=== PATIENT | male | born 1955 | race Caucasian/White ===

== ENCOUNTER 2019-05-31 15:26 | Emergency (ER) | payer SELFPAY ==
[2019-05-31] MEDS ORDERED: Diphtheria,Pertussis(Acell),Tetanus Vaccine 0.5 ML Syringe IM ONE (15:37)
[2019-05-31] MEDS ORDERED: Bacitracin Oint 1 GM U/D Packet TOP ONE (15:39)
--- NOTE | 2019-05-31 15:40 | EDM.PDOC ---
ED HPI GENERAL MEDICAL PROBLEM - General Chief Complaint: Bite:Animal, Insect Stated Complaint: DOG BITE Time Seen by Provider: 05/31/19 15:27 - History of Present Illness INITIAL COMMENTS - FREE TEXT/NARRATIVE: HISTORY AND PHYSICAL: History of present illness: Patient 64-year-old male presents status post dog bite this was a provoked attack animal is reported to have immunizations and well known to the patient. Patient denies up-to-date tetanus Review of systems: As per history of present illness and below otherwise all systems reviewed and negative. Past medical history: As per history of present illness and as reviewed below otherwise noncontributory. Surgical history: As per history of present illness and as reviewed below otherwise noncontributory. Social history: No reported history of drug or alcohol abuse. Family history: As per history of present illness and as reviewed below otherwise noncontributory. Physical exam: HEENT: Atraumatic, normocephalic, pupils reactive, negative for conjunctival pallor or scleral icterus, mucous membranes moist, throat clear, neck supple, nontender, trachea midline. Lungs: Clear to auscultation, breath sounds equal bilaterally, chest nontender. Heart: S1S2, regular, negative for clicks, rubs, or JVD. Abdomen: Soft, nondistended, nontender. Negative for masses or hepatosplenomegaly. Negative for costovertebral tenderness. Pelvis: Stable nontender. Genitourinary: Deferred. Rectal: Deferred. Extremities: Abrasion superficial laceration noted the right forearm good hemostasis CMS neurovascular exam is unremarkable there's no tendon involvement. Neuro: Awake, alert, oriented. Cranial nerves II through XII unremarkable. Cerebellum unremarkable. Motor and sensory unremarkable throughout. Exam nonfocal. Diagnostics: None Therapeutics: Tetanus updated wound irrigated copiously with 0.9 normal saline and dressed with bacitracin dressing Impression: #1 dog bite right upper extremity Definitive disposition and diagnosis as appropriate pending reevaluation and review of above. - Related Data Allergies Allergy/AdvReac Type Severity Reaction Status Date / Time No Known Allergies Allergy Verified 05/31/19 15:35 Home Meds: Home Meds . [No Known Home Meds] 03/11/14 [History] Past Medical History - Past Health History Medical/Surgical History: Denies Medical/Surgical History Social & Family History - Family History Family Medical History: Noncontributory - Tobacco Use Smoking Status *Q: Current Every Day Smoker Years of Tobacco use: 49 Packs/Tins Daily: 0.5 - Caffeine Use Caffeine Use: Reports: Coffee - Recreational Drug Use Recreational Drug Use: No ED ROS GENERAL - Review of Systems Review Of Systems: ROS reveals no pertinent complaints other than HPI. ED EXAM, ANIMAL BITE - Physical Exam Exam: See Below (See dictation) Course - Vital Signs Last Recorded V/S: Last Vital Signs Temp 36.8 C 05/31/19 15:31 Pulse 93 05/31/19 15:31 Resp 18 05/31/19 15:31 BP 143/93 H 05/31/19 15:31 Pulse Ox 95 05/31/19 15:31 - Orders/Labs/Meds Orders: Active Orders 24 hr Category Date Time Status Vaccines to be Administered [RC] PER UNIT ROUTINE Care 05/31/19 15:37 Active Meds: Medications Discontinued Medications Generic Name Dose Route Start Last Admin Trade Name Freq PRN Reason Stop Dose Admin Diphtheria/Tetanus/Acell Pertussis 0.5 ml 05/31/19 15:37 Adacel IM 05/31/19 15:38 .ONCE ONE Departure - Departure Time of Disposition: 15:39 Disposition: Home, Self-Care 01 Condition: Good Clinical Impression: Dog bite - Discharge Information Referrals: PCP,Unknown [Primary Care Provider] - Additional Instructions: The following information is given to patients seen in the emergency department who are being discharged to home. This information is to outline your options for follow-up care. We provide all patients seen in our emergency department with a follow-up referral. The need for follow-up, as well as the timing and circumstances, are variable depending upon the specifics of your emergency department visit. If you don't have a primary care physician on staff, we will provide you with a referral. We always advise you to contact your personal physician following an emergency department visit to inform them of the circumstance of the visit and for follow-up with them and/or the need for any referrals to a consulting specialist. The emergency department will also refer you to a specialist when appropriate. This referral assures that you have the opportunity for followup care with a specialist. All of these measure are taken in an effort to provide you with optimal care, which includes your followup. Under all circumstances we always encourage you to contact your private physician who remains a resource for coordinating your care. When calling for followup care, please make the office aware that this follow-up is from your recent emergency room visit. If for any reason you are refused follow-up, please contact the [facility] emergency department at and asked to speak to the emergency department charge nurse. Wound care as discussed follow-up primary medical doctor for reevaluation 48 hours Augmentin as prescribed return as needed as discussed - My Orders Last 24 Hours: My Active Orders 05/31/19 15:37 Vaccines to be Administered [RC] PER UNIT ROUTINE - Assessment/Plan Last 24 Hours: My Active Orders 05/31/19 15:37 Vaccines to be Administered [RC] PER UNIT ROUTINE
== END 2019-05-31 15:56 | disposition home or self-care (01) ==
LOC: MW.ED 15:26
DX: S51.851A Open bite of right forearm, initial encounter (principal); F17.210 Nicotine dependence, cigarettes, uncomplicated; Z23 Encounter for immunization; W54.0XXA Bitten by dog, initial encounter
CPT/HCPCS: 90471; 90715; 99283

== ENCOUNTER 2019-09-08 19:04 | Emergency (ER) | payer SELFPAY ==
[2019-09-08] MEDS ORDERED: Ketorolac 30 MG/ML SDV IM ONE (19:17)
--- NOTE | 2019-09-08 19:22 | EDM.PDOC ---
ED HPI GENERAL MEDICAL PROBLEM - General Chief Complaint: Genitourinary Problem Stated Complaint: SWOLLEN TESTICLE Time Seen by Provider: 09/08/19 19:08 - History of Present Illness INITIAL COMMENTS - FREE TEXT/NARRATIVE: HISTORY AND PHYSICAL: History of present illness: Patient is a 64-year-old white male who presents with a concern of left testicular pain he states he's had a history of testicular pain and swelling in his been seen by physician on multiple prior occasions he does not recall a specific diagnosis is extremely vague with regard to any diagnostic testing or treatments. He states he was put on anti-inflammatory once patient states is also had a history of urolithiasis he denies any back pain states this event is approximately 1 week. He denies trauma. Review of systems: As per history of present illness and below otherwise all systems reviewed and negative. Past medical history: As per history of present illness and as reviewed below otherwise noncontributory. Surgical history: As per history of present illness and as reviewed below otherwise noncontributory. Social history: No reported history of drug or alcohol abuse. Family history: As per history of present illness and as reviewed below otherwise noncontributory. Physical exam: HEENT: Atraumatic, normocephalic, pupils reactive, negative for conjunctival pallor or scleral icterus, mucous membranes moist, throat clear, neck supple, nontender, trachea midline. Lungs: Clear to auscultation, breath sounds equal bilaterally, chest nontender. Heart: S1S2, regular, negative for clicks, rubs, or JVD. Abdomen: Soft, nondistended, nontender. Negative for masses or hepatosplenomegaly. Negative for costovertebral tenderness. Pelvis: Stable nontender. Genitourinary: Grossly normal no masses appreciated no penile lesions no urethral discharge no evidence of hernia Rectal: Deferred. Extremities: Atraumatic, negative for cords or calf pain. Neurovascular unremarkable. Neuro: Awake, alert, oriented. Cranial nerves II through XII unremarkable. Cerebellum unremarkable. Motor and sensory unremarkable throughout. Exam nonfocal. Diagnostics: CBC CMP UA urine for GC chlamydia testicular ultrasound left kidney ultrasound Therapeutics: Toradol 30 mg IM Impression: #1 chronic intermittent left testicular pain etiology to be determined Definitive disposition and diagnosis as appropriate pending reevaluation and review of above. left scrotal Pain Score (Numeric/FACES): 9 - Related Data Allergies Allergy/AdvReac Type Severity Reaction Status Date / Time No Known Allergies Allergy Verified 09/08/19 19:11 Home Meds: Home Meds . [No Known Home Meds] 03/11/14 [History] Past Medical History - Past Health History Medical/Surgical History: Denies Medical/Surgical History HEENT History: Reports: None Cardiovascular History: Reports: None Respiratory History: Reports: None Gastrointestinal History: Reports: None Genitourinary History: Reports: Renal Calculus Musculoskeletal History: Reports: None Neurological History: Reports: None Psychiatric History: Reports: None Endocrine/Metabolic History: Reports: None Insulin Pump Model and Cyber Reverse Engineer: None Hematologic History: Reports: None Immunologic History: Reports: None Oncologic (Cancer) History: Reports: None Dermatologic History: Reports: None - Infectious Disease History Infectious Disease History: Reports: None - Past Surgical History Male Surgical History: Reports: Lithotripsy ([facility]) Musculoskeletal Surgical History: Reports: Shoulder Surgery Social & Family History - Family History Family Medical History: Noncontributory - Tobacco Use Smoking Status *Q: Current Some Day Smoker Years of Tobacco use: 1 Packs/Tins Daily: 1 - Caffeine Use Caffeine Use: Reports: Soda - Recreational Drug Use Recreational Drug Use: No ED ROS GENERAL - Review of Systems Review Of Systems: Comprehensive ROS is negative, except as noted in HPI. ED EXAM, GENERAL - Physical Exam Exam: See Below (See dictation) Course - Vital Signs Last Recorded V/S: Last Vital Signs Temp 36.1 C 09/08/19 21:32 Pulse 60 09/08/19 21:32 Resp 18 09/08/19 21:32 BP 150/92 H 09/08/19 21:32 Pulse Ox 95 09/08/19 21:32 - Orders/Labs/Meds Orders: Active Orders 24 hr Category Date Time Status Scrotal Duplex Ltd [US] Routine Exams 09/08/19 19:15 Taken CHLAMYDIA AND GONORRHEA BY TMA Stat Lab 09/08/19 19:55 Received CULTURE URINE [RM] Stat Lab 09/08/19 19:55 Received Labs: Laboratory Tests 09/08/19 09/08/19 09/08/19 Range/Units 19:27 19:27 19:55 WBC 7.72 (4.0-11.0) K/uL RBC 5.18 (4.50-5.90) M/uL Hgb 14.8 (13.0-17.0) g/dL Hct 42.6 (38.0-50.0) % MCV 82.2 (80.0-98.0) fL MCH 28.6 (27.0-32.0) pg MCHC 34.7 (31.0-37.0) g/dL RDW Std Deviation 38.5 (28.0-62.0) fl RDW Coeff of Carin 13 (11.0-15.0) % Plt Count 225 (150-400) K/uL MPV 9.40 (7.40-12.00) fL Neut % (Auto) 67.5 (48.0-80.0) % Lymph % (Auto) 21.0 (16.0-40.0) % Clay % (Auto) 8.0 (0.0-15.0) % Eos % (Auto) 3.2 (0.0-7.0) % Baso % (Auto) 0.3 (0.0-1.5) % Neut # (Auto) 5.2 (1.4-5.7) K/uL Lymph # (Auto) 1.6 (0.6-2.4) K/uL Clay # (Auto) 0.6 (0.0-0.8) K/uL Eos # (Auto) 0.3 (0.0-0.7) K/uL Baso # (Auto) 0.0 (0.0-0.1) K/uL Sodium 140 (136-148) mmol/L Potassium 3.9 (3.5-5.1) mmol/L Chloride 104 (98-107) mmol/L Carbon Dioxide 25.8 (21.0-32.0) mmol/L BUN 13 (7.0-18.0) mg/dL Creatinine 1.1 (0.8-1.3) mg/dL Est Cr Clr Drug Dosing 74.16 mL/min Estimated GFR (MDRD) > 60.0 ml/min Glucose 111 H (74-106) mg/dL Calcium 8.5 (8.5-10.1) mg/dL Total Bilirubin 0.4 (0.2-1.0) mg/dL AST 36 (15-37) IU/L ALT 64 H (14-63) IU/L Alkaline Phosphatase 111 (46-116) U/L Total Protein 7.5 (6.4-8.2) g/dL Albumin 4.1 (3.4-5.0) g/dL Globulin 3.4 (2.6-4.0) g/dL Albumin/Globulin Ratio 1.2 (0.9-1.6) Urine Color YELLOW Urine Appearance CLEAR Urine pH 6.0 (5.0-8.0) Ur Specific [place] 1.025 (1.001-1.035) Urine Protein NEGATIVE (NEGATIVE) mg/dL Urine Glucose (UA) NEGATIVE (NEGATIVE) mg/dL Urine Ketones TRACE H (NEGATIVE) mg/dL Urine Occult Blood NEGATIVE (NEGATIVE) Urine Nitrite NEGATIVE (NEGATIVE) Urine Bilirubin NEGATIVE (NEGATIVE) Urine Urobilinogen 0.2 (<2.0) EU/dL Ur Leukocyte Esterase TRACE H (NEGATIVE) Urine RBC 0-1 (0-2/HPF) Urine WBC 1-2 (0-5/HPF) Ur Epithelial Cells RARE (NONE-FEW) Urine Bacteria RARE (NEGATIVE) Urine Opiates Screen (NEGATIVE) Ur Oxycodone Screen (NEGATIVE) Urine Methadone Screen (NEGATIVE) Ur Barbiturates Screen (NEGATIVE) Ur Phencyclidine Scrn (NEGATIVE) Ur Amphetamine Screen (NEGATIVE) U Methamphetamines Scrn (NEGATIVE) U Benzodiazepines Scrn (NEGATIVE) U Cocaine Metab Screen (NEGATIVE) U Marijuana (THC) Screen (NEGATIVE) 09/08/19 Range/Units 19:55 WBC (4.0-11.0) K/uL RBC (4.50-5.90) M/uL Hgb (13.0-17.0) g/dL Hct (38.0-50.0) % MCV (80.0-98.0) fL MCH (27.0-32.0) pg MCHC (31.0-37.0) g/dL RDW Std Deviation (28.0-62.0) fl RDW Coeff of Carin (11.0-15.0) % Plt Count (150-400) K/uL MPV (7.40-12.00) fL Neut % (Auto) (48.0-80.0) % Lymph % (Auto) (16.0-40.0) % Clay % (Auto) (0.0-15.0) % Eos % (Auto) (0.0-7.0) % Baso % (Auto) (0.0-1.5) % Neut # (Auto) (1.4-5.7) K/uL Lymph # (Auto) (0.6-2.4) K/uL Clay # (Auto) (0.0-0.8) K/uL Eos # (Auto) (0.0-0.7) K/uL Baso # (Auto) (0.0-0.1) K/uL Sodium (136-148) mmol/L Potassium (3.5-5.1) mmol/L Chloride (98-107) mmol/L Carbon Dioxide (21.0-32.0) mmol/L BUN (7.0-18.0) mg/dL Creatinine (0.8-1.3) mg/dL Est Cr Clr Drug Dosing mL/min Estimated GFR (MDRD) ml/min Glucose (74-106) mg/dL Calcium (8.5-10.1) mg/dL Total Bilirubin (0.2-1.0) mg/dL AST (15-37) IU/L ALT (14-63) IU/L Alkaline Phosphatase (46-116) U/L Total Protein (6.4-8.2) g/dL Albumin (3.4-5.0) g/dL Globulin (2.6-4.0) g/dL Albumin/Globulin Ratio (0.9-1.6) Urine Color Urine Appearance Urine pH (5.0-8.0) Ur Specific [place] (1.001-1.035) Urine Protein (NEGATIVE) mg/dL Urine Glucose (UA) (NEGATIVE) mg/dL Urine Ketones (NEGATIVE) mg/dL Urine Occult Blood (NEGATIVE) Urine Nitrite (NEGATIVE) Urine Bilirubin (NEGATIVE) Urine Urobilinogen (<2.0) EU/dL Ur Leukocyte Esterase (NEGATIVE) Urine RBC (0-2/HPF) Urine WBC (0-5/HPF) Ur Epithelial Cells (NONE-FEW) Urine Bacteria (NEGATIVE) Urine Opiates Screen NEGATIVE (NEGATIVE) Ur Oxycodone Screen NEGATIVE (NEGATIVE) Urine Methadone Screen NEGATIVE (NEGATIVE) Ur Barbiturates Screen NEGATIVE (NEGATIVE) Ur Phencyclidine Scrn NEGATIVE (NEGATIVE) Ur Amphetamine Screen NEGATIVE (NEGATIVE) U Methamphetamines Scrn NEGATIVE (NEGATIVE) U Benzodiazepines Scrn NEGATIVE (NEGATIVE) U Cocaine Metab Screen NEGATIVE (NEGATIVE) U Marijuana (THC) Screen POSITIVE (NEGATIVE) Meds: Medications Discontinued Medications Generic Name Dose Route Start Last Admin Trade Name Demetria PRN Reason Stop Dose Admin Ketorolac Tromethamine 30 mg 09/08/19 19:17 09/08/19 19:29 Toradol IM 09/08/19 19:18 30 mg ONETIME ONE Administration Departure - Departure Time of Disposition: 21:40 Disposition: Home, Self-Care 01 Condition: Good Clinical Impression: Chronic pain in testicle - Discharge Information Referrals: PCP,None [Ordering Only Provider] - Forms: ED Department Discharge Additional Instructions: The following information is given to patients seen in the emergency department who are being discharged to home. This information is to outline your options for follow-up care. We provide all patients seen in our emergency department with a follow-up referral. The need for follow-up, as well as the timing and circumstances, are variable depending upon the specifics of your emergency department visit. If you don't have a primary care physician on staff, we will provide you with a referral. We always advise you to contact your personal physician following an emergency department visit to inform them of the circumstance of the visit and for follow-up with them and/or the need for any referrals to a consulting specialist. The emergency department will also refer you to a specialist when appropriate. This referral assures that you have the opportunity for followup care with a specialist. All of these measure are taken in an effort to provide you with optimal care, which includes your followup. Under all circumstances we always encourage you to contact your private physician who remains a resource for coordinating your care. When calling for followup care, please make the office aware that this follow-up is from your recent emergency room visit. If for any reason you are refused follow-up, please contact the [facility] emergency department at and asked to speak to the emergency department charge nurse. DEEJAY [facility] - Urology [address] [place] [id number] Follow-up urology as discussed Motrin/Tylenol as directed return as needed as discussed - My Orders Last 24 Hours: My Active Orders 09/08/19 19:15 Scrotal Duplex Ltd [US] Routine 09/08/19 19:55 CHLAMYDIA AND GONORRHEA BY TMA Stat CULTURE URINE [RM] Stat - Assessment/Plan Last 24 Hours: My Active Orders 09/08/19 19:15 Scrotal Duplex Ltd [US] Routine 09/08/19 19:55 CHLAMYDIA AND GONORRHEA BY TMA Stat CULTURE URINE [RM] Stat
[2019-09-08 20:07] LABS: BLOOD UREA NITROGEN,BUN 13 mg/dL (7.0-18.0); CARBON DIOXIDE,CO2 25.8 mmol/L (21.0-32.0); CHLORIDE,CL 104 mmol/L (98-107); GLUCOSE RANDOM 111 mg/dL (74-106); POTASSIUM,K 3.9 mmol/L (3.5-5.1); SODIUM,NA 140 mmol/L (136-148)
--- NOTE | 2019-09-08 21:35 | US ---
INDICATION: Left flank pain TECHNIQUE: Ultrasound renal bilateral. Richardson scale and color Doppler sonographic images were acquired of the kidneys and urinary bladder. COMPARISON: None FINDINGS: Right kidney: 11.3 cm. Normal echotexture and cortex. No masses, stones, or hydronephrosis. Left kidney: 11.3 cm. Normal echotexture and cortex. No masses, stones, or hydronephrosis. Bladder: Normal in caliber and appearance. Color Doppler images demonstrate only a left ureteral jet. IMPRESSION: Normal renal ultrasound. Dictated by Eliceo Barrow MD @ 09/08/2019 9:32:46 PM Dictated by: Eliceo Barrow MD @ 09/08/2019 21:32:50 (Electronically Signed)
--- NOTE | 2019-09-08 21:36 | US ---
INDICATION: Side testicular pain TECHNIQUE: Ultrasound of the scrotum and contents. Sonographic judd scale images were obtained with spectral and color Doppler waveform and spectral waveform analysis of the testicles. COMPARISON: None FINDINGS: Right testicle: 5.5 centimeter x 2.6 centimeter x 2.8 centimeter. Normal echotexture. No masses. No suspicious calcifications. Normal arterial and venous and blood flow using Doppler and spectral waveform analysis. Left testicle: 5.2 centimeter x 2.3 centimeter x 3.4 centimeter. Normal echotexture. No masses. No suspicious calcifications. Normal arterial and venous and blood flow using Doppler and spectral waveform analysis. Epididymis: Unremarkable bilaterally. Normal blood flow. Other: Small bilateral hydroceles left greater than right. No sign of varicocele. Scrotal wall is normal. IMPRESSION: Normal testicles, right and left epididymis. Small bilateral hydroceles left greater than right. Dictated by Eliceo Barrow MD @ 09/08/2019 9:35:12 PM Dictated by: Eliceo Barrow MD @ 09/08/2019 21:35:18 (Electronically Signed)
--- NOTE | 2019-09-09 11:47 | US ---
EXAM DATE: 09/08/19 PATIENT'S AGE: 64 Patient: KAYLEY JAYJAY Facility: [facility] . Site : 1955 Study: US-Testicle -09/08/2019 8:57:18 PM Ordering Physician: Sterling Domingo Final Report: INDICATION: Side testicular pain TECHNIQUE: Ultrasound of the scrotum and contents. Sonographic judd scale images were obtained with spectral and color Doppler waveform and spectral waveform analysis of the testicles. COMPARISON: None FINDINGS: Right testicle: 5.5 centimeter x 2.6 centimeter x 2.8 centimeter. Normal echotexture. No masses. No suspicious calcifications. Normal arterial and venous and blood flow using Doppler and spectral waveform analysis. Left testicle: 5.2 centimeter x 2.3 centimeter x 3.4 centimeter. Normal echotexture. No masses. No suspicious calcifications. Normal arterial and venous and blood flow using Doppler and spectral waveform analysis. Epididymis: Unremarkable bilaterally. Normal blood flow. Other: Small bilateral hydroceles left greater than right. No sign of varicocele. Scrotal wall is normal. IMPRESSION: Normal testicles, right and left epididymis. Small bilateral hydroceles left greater than right. Dictated by Kayley Barrow MD @ 09/08/2019 9:35:12 PM Dictated by: Kayley Barrow MD @ 09/08/2019 21:35:18 Signed by: Kayley Barrow MD @09/08/2019 9:35:18 PM (Electronic Signature) Report Signed by Proxy. GINETTE
== END 2019-09-08 21:50 | disposition home or self-care (01) ==
LOC: MW.ED 19:04
DX: N50.812 Left testicular pain (principal); G89.29 Other chronic pain; F17.210 Nicotine dependence, cigarettes, uncomplicated
CPT/HCPCS: 36415; 76775; 76870; 80053; 80305; 81001; 85025; 87086; 87491; 87591; 93976; 96372; 99284; J1885

== ENCOUNTER 2019-11-02 10:59 | Emergency (ER) | payer SELFPAY | END 2019-11-02 11:40 | disposition left against medical advice (07) | LOC: MW.ED 10:59 | DX: Z53.21 Procedure and treatment not carried out due to patient leaving prior to being seen by health care provider (principal) ==

== ENCOUNTER 2020-04-11 13:08 | Emergency (ER) | payer OTHER ==
--- NOTE | 2020-04-11 13:40 | EDM.PDOC ---
ED HPI GENERAL MEDICAL PROBLEM - General Chief Complaint: Lower Extremity Injury/Pain Stated Complaint: RIGHT LEG / GREEN INJURY Time Seen by Provider: 04/11/20 13:10 Source of Information: Reports: Patient History Limitations: Reports: No Limitations - History of Present Illness INITIAL COMMENTS - FREE TEXT/NARRATIVE: HISTORY AND PHYSICAL: History of present illness: Patient is a 65-year-old male who presents to the emergency room with complaints of right lower extremity pain and injury. He states on 04/01/2020 he had stepped through a grate that was approximately a foot off of the ground, resulting in his medial right lower extremity grazing the metal adrienne. Immediately he had a large golf ball sized area of redness and soft tissue swelling. Over the next few days he had pain at the site and bruising distally with settling in his plantar surface of his foot. He has been continuing to be ambulatory, bearing weight and able to perform his ADLs. The localized area of soft tissue swelling is smaller but now tender to touch. He also has some diffuse redness extending into the anterior tib-fib area and into the posterior calf. Patient denies any fever, chills, headache, change in vision, syncope or near syncope. Denies any chest pain, back pain, shortness of breath or cough. Denies any GI or symptoms. No history of diabetes. Review of systems: As per history of present illness and below otherwise all systems reviewed and negative. Past medical history: As per history of present illness and as reviewed below otherwise noncontributory. Surgical history: As per history of present illness and as reviewed below otherwise noncontributory. Social history: See social history for further information Family history: As per history of present illness and as reviewed below otherwise noncontributory. Physical exam: General: Well-developed and well-nourished 65-year-old male. Alert and oriented. Nontoxic-appearing and in no acute distress. HEENT: Atraumatic, normocephalic, pupils equal and reactive bilaterally, negative for conjunctival pallor or scleral icterus, mucous membranes moist, TMs normal bilaterally, throat clear, neck supple, nontender, trachea midline. No drooling or trismus noted. No meningeal signs. No hot potato voice noted. Lungs: Clear to auscultation, breath sounds equal bilaterally, chest nontender. Heart: S1S2, regular rate and rhythm without overt murmur Abdomen: Soft, nondistended, nontender. Skin: Quarter size area of soft tissue swelling to the medial mid right calf which is firm to palpation. Nonfluctuant and nonindurated. The skin surrounding the site is erythematous and extends to the anterior and calf area of the right lower extremity. He does have some healing bruising/pooling to the plantar surface of the foot both medially and laterally. Otherwise remaining skin is intact, warm, dry. No lesions or rashes noted. Extremities: See SKIN for details. Mild discomfort with palpation of the distal medial and lateral tib-fib. Moves all extremities per self without difficulty or deficits, negative for cords or calf pain. Negative foot drop. Positive CMS. Strong pedal pulses. Neurovascular unremarkable. Neuro: Awake, alert, oriented. Cranial nerves II through XII unremarkable. Cerebellum unremarkable. Motor and sensory unremarkable throughout. Exam nonfocal. Notes: Initial documented blood pressure was elevated, this was repeated several minutes after and is now in normal limits. We will continue to monitor. Lab work is unremarkable. Ultrasound shows no evidence of a DVT. There is a hematoma that is 5.3 x 1.6 x 2.9. With the diffuse redness, will treat as early cellulitis. We discussed signs and symptoms that would prompt him to return to the emergency room. He declines wanting any type of crutches or supportive boot for comfort purposes. Follow up, medication and supportive care measures were reviewed and discussed. Voices understanding and is agreeable to plan of care. Denies any further questions or concerns at this time. Diagnostics: CBC, CMP, Tib/Fib x-ray, Venous and soft tissue U/S Therapeutics: None Prescription: Tramadol (#15) Keflex Impression: Hematoma Cellulitis Plan: 1. Your x-ray and ultrasound show no fracture or DVT (blood clot), but you do have a large bruise under the skin surface (which is where that large lump is). Rest, ice, elevate the affected extremity. Continue to monitor skin for signs of improvement. If redness/pain gets worse you need to follow up with primary care or return to the ED as we discussed. 2. Tylenol and/or Ibuprofen as needed for pain management. 3. Follow up with the Orthopedic provider as we discussed. Return to the ED as needed and as discussed. Definitive disposition and diagnosis as appropriate pending reevaluation and review of above. right leg Pain Score (Numeric/FACES): 6 - Related Data Allergies Allergy/AdvReac Type Severity Reaction Status Date / Time No Known Allergies Allergy Verified 04/11/20 13:32 Home Meds: Home Meds cephALEXin [Keflex] 500 mg PO BID 5 Days #10 cap 04/11/20 [Rx] traMADol [Ultram] 50 mg PO Q4H PRN #15 tab 04/11/20 [Rx] Past Medical History - Past Health History Medical/Surgical History: Denies Medical/Surgical History HEENT History: Reports: None Cardiovascular History: Reports: Hypertension Respiratory History: Reports: None Gastrointestinal History: Reports: None Genitourinary History: Reports: Renal Calculus Musculoskeletal History: Reports: None Neurological History: Reports: None Psychiatric History: Reports: None Endocrine/Metabolic History: Reports: None Insulin Pump Model and Extrusion Die Repair Manager: None Hematologic History: Reports: None Immunologic History: Reports: None Oncologic (Cancer) History: Reports: None Dermatologic History: Reports: None - Infectious Disease History Infectious Disease History: Reports: Chicken Pox, Measles, Mumps - Past Surgical History Male Surgical History: Reports: Lithotripsy ([facility]) Musculoskeletal Surgical History: Reports: Shoulder Surgery Other Musculoskeletal Surgeries/Procedures:: knee surgery, arm surgery Social & Family History - Family History Family Medical History: Noncontributory - Tobacco Use Smoking Status *Q: Current Every Day Smoker Years of Tobacco use: 50 Packs/Tins Daily: 0.5 - Caffeine Use Caffeine Use: Reports: Soda - Recreational Drug Use Recreational Drug Use: No Review of Systems - Review of Systems Review Of Systems: Comprehensive ROS is negative, except as noted in HPI. ED EXAM, GENERAL - Physical Exam Exam: See Below (See dictation) Course - Vital Signs Last Recorded V/S: Last Vital Signs Temp 95.8 F L 04/11/20 13:28 Pulse 73 04/11/20 16:10 Resp 18 04/11/20 16:10 BP 143/77 H 04/11/20 16:10 Pulse Ox 95 04/11/20 16:10 - Orders/Labs/Meds Labs: Laboratory Tests 04/11/20 04/11/20 Range/Units 13:51 13:51 WBC 7.05 (4.0-11.0) K/uL RBC 4.95 (4.50-5.90) M/uL Hgb 14.2 (13.0-17.0) g/dL Hct 43.0 (38.0-50.0) % MCV 86.9 (80.0-98.0) fL MCH 28.7 (27.0-32.0) pg MCHC 33.0 (31.0-37.0) g/dL RDW Std Deviation 40.5 (28.0-62.0) fl RDW Coeff of Carin 13 (11.0-15.0) % Plt Count 195 (150-400) K/uL MPV 9.90 (7.40-12.00) fL Neut % (Auto) 70.8 (48.0-80.0) % Lymph % (Auto) 14.6 L (16.0-40.0) % Roane % (Auto) 9.8 (0.0-15.0) % Eos % (Auto) 4.4 (0.0-7.0) % Baso % (Auto) 0.4 (0.0-1.5) % Neut # (Auto) 5.0 (1.4-5.7) K/uL Lymph # (Auto) 1.0 (0.6-2.4) K/uL Roane # (Auto) 0.7 (0.0-0.8) K/uL Eos # (Auto) 0.3 (0.0-0.7) K/uL Baso # (Auto) 0.0 (0.0-0.1) K/uL Nucleated RBC % 0.0 /100WBC Nucleated RBCs # 0 K/uL Sodium 140 (136-148) mmol/L Potassium 4.3 (3.5-5.1) mmol/L Chloride 103 (98-107) mmol/L Carbon Dioxide 30.0 (21.0-32.0) mmol/L BUN 15 (7.0-18.0) mg/dL Creatinine 1.1 (0.8-1.3) mg/dL Est Cr Clr Drug Dosing 73.21 mL/min Estimated GFR (MDRD) > 60.0 ml/min Glucose 114 H (74-106) mg/dL Calcium 9.1 (8.5-10.1) mg/dL Total Bilirubin 0.7 (0.2-1.0) mg/dL AST 24 (15-37) IU/L ALT 47 (14-63) IU/L Alkaline Phosphatase 103 (46-116) U/L Total Protein 7.2 (6.4-8.2) g/dL Albumin 4.2 (3.4-5.0) g/dL Globulin 3.0 (2.6-4.0) g/dL Albumin/Globulin Ratio 1.4 (0.9-1.6) Departure - Departure Time of Disposition: 15:40 Disposition: Home, Self-Care 01 Clinical Impression: Hematoma of lower leg Cellulitis Qualifiers: Site of cellulitis: extremity Site of cellulitis of extremity: lower extremity Laterality: right Qualified Code(s): L03.115 - Cellulitis of right lower limb - Discharge Information Prescriptions: cephALEXin [Keflex] 500 mg PO BID 5 Days #10 cap traMADol [Ultram] 50 mg PO Q4H PRN #15 tab PRN Reason: Pain Instructions: Cellulitis, Adult, [id number] Referrals: Carlos Duggan MD [Primary Care Provider] - Forms: ED Department Discharge Additional Instructions: The following information is given to patients seen in the emergency department who are being discharged to home. This information is to outline your options for follow-up care. We provide all patients seen in our emergency department with a follow-up referral. The need for follow-up, as well as the timing and circumstances, are variable depending upon the specifics of your emergency department visit. If you don't have a primary care physician on staff, we will provide you with a referral. We always advise you to contact your personal physician following an emergency department visit to inform them of the circumstance of the visit and for follow-up with them and/or the need for any referrals to a consulting specialist. The emergency department will also refer you to a specialist when appropriate. This referral assures that you have the opportunity for follow-up care with a specialist. All of these measure are taken in an effort to provide you with optimal care, which includes your follow-up. Under all circumstances we always encourage you to contact your private physician who remains a resource for coordinating your care. When calling for follow-up care, please make the office aware that this follow-up is from your recent emergency room visit. If for any reason you are refused follow-up, please contact the [facility] Emergency Department at and asked to speak to the emergency department charge nurse. [facility] [address] [place] [address] [facility] [address] [place] [id number] 1. Your x-ray and ultrasound show no fracture or DVT (blood clot), but you do have a large bruise under the skin surface (which is where that large lump is). Rest, ice, elevate the affected extremity. Continue to monitor skin for signs of improvement. If redness/pain gets worse you need to follow up with primary care or return to the ED as we discussed. 2. Tylenol and/or Ibuprofen as needed for pain management. 3. Follow up with the Orthopedic provider as we discussed. Return to the ED as needed and as discussed. Sepsis Event Note (ED) - Evaluation Sepsis Screening Result: No Definite Risk - Focused Exam Vital Signs: Vital Signs Temp Pulse Resp BP Pulse Ox 04/11/20 16:10 73 18 143/77 H 95 04/11/20 13:28 95.8 F L 88 17 146/112 H 94 L
[2020-04-11 14:28] LABS: BLOOD UREA NITROGEN,BUN 15 mg/dL (7.0-18.0); CHLORIDE,CL 103 mmol/L (98-107); GLUCOSE RANDOM 114 mg/dL (74-106); POTASSIUM,K 4.3 mmol/L (3.5-5.1); SODIUM,NA 140 mmol/L (136-148)
--- NOTE | 2020-04-11 15:53 | CR ---
Right tibia and fibula: 2 views of the right tibia and fibula were obtained. No soft tissue calcifications are seen. No acute fracture or other bony abnormality is appreciated. Impression: 1. Nothing acute is seen on right tibia and fibula study. Diagnostic code #1 This report was dictated in MDT
--- NOTE | 2020-04-11 16:39 | US ---
Right lower extremity ultrasound with right lower extremity venous ultrasound: Duplex and color Doppler imaging was obtained of the right common femoral, superficial femoral, popliteal,, posterior tibial and peroneal veins. Multiple real-time images of the right calf were obtained. Findings: Normal compression and Doppler blood flow is seen within the deep veins. Hypoechoic mass identified within the right calf which has measurements of 5.3 x 1.6 cm. Impression: 1. Hypoechoic nonspecific mass within the right calf. If patient has had prior trauma this may represent hematoma. If patient has no symptoms of trauma, MRI is recommended to further evaluate which should be a without and with contrast study. 2. No evidence of deep venous thrombosis within the right lower extremity. Diagnostic code #9 This report was dictated in MDT MTDD
== END 2020-04-11 16:10 | disposition home or self-care (01) ==
LOC: MW.ED 13:08
DX: S80.11XA Contusion of right lower leg, initial encounter (principal); L03.115 Cellulitis of right lower limb; I10 Essential (primary) hypertension; F17.210 Nicotine dependence, cigarettes, uncomplicated; X58.XXXA Exposure to other specified factors, initial encounter
CPT/HCPCS: 36415; 73590-26-RT; 73590-RT; 76882; 76882-26; 80053; 85025; 93971-26-RT; 93971-RT; 99283; 99284-25